=== PATIENT | male | born 1975 | race Caucasian/White ===

== ENCOUNTER → 2018-01-16 | Outpatient (CLI) | payer MEDICAID | LOC: BRMIMAGING 16:17 | PROVIDERS: ATTEND Internal Medicine | DX: M50.323 Other cervical disc degeneration at C6-C7 level (principal); M12.88 Other specific arthropathies, not elsewhere classified, other specified site | CPT/HCPCS: 72050-PO; 72100-PO ==

== ENCOUNTER → 2018-01-18 | Outpatient (CLI) | payer MEDICAID | LOC: FIMAGING 11:51 | PROVIDERS: ATTEND Internal Medicine | DX: M51.35 Other intervertebral disc degeneration, thoracolumbar region (principal); M50.323 Other cervical disc degeneration at C6-C7 level; M20.11 Hallux valgus (acquired), right foot; M20.12 Hallux valgus (acquired), left foot; M25.561 Pain in right knee; M25.562 Pain in left knee ==